=== PATIENT | female | born 1995 | race Caucasian/White ===

== ENCOUNTER 2017-02-13 20:08 | Emergency (ER) | payer BC ==
[2017-02-13] MEDS ORDERED: predniSONE TAB* 10 MG PO ONE (22:25)
[2017-02-13 22:26] VITALS: BP 138/64
--- NOTE | 2017-02-13 22:31 | UC ---
Skin Complaint HPI - HPI Summary HPI Summary: 21 y/o female with no PMH no medications presents for itchy rash/ bite over her forearm b/l, R foot, and posterior neck. patient states woke up with ones on her forearm last night, have increased in redness, itchy, and tenderness since that time. No fever, chills, + pain in R forearm with redness extending around bites. no joint tenderness, pain - History of Current Complaint Hx Obtained From: Patient Hx Last Menstrual Period: 2 months ago, one 3 month birtch control Onset/Duration: Sudden Onset, Lasting Days Skin Exposure Onset/Duration: Hours Ago Onset Severity: Moderate Current Severity: Moderate <Sailaja Wilson - Last Filed: 02/26/17 20:08> <Romana Jeffries - Last Filed: 02/27/17 20:39> - History of Current Complaint Chief Complaint: [facility] Time Seen by Provider: 02/13/17 21:59 Stated Complaint: SKIN - Allergy/Home Medications Allergies/Adverse Reactions: Allergies Allergy/AdvReac Type Severity Reaction Status Date / Time Sulfa Antibiotics Allergy Unknown Verified 02/13/17 20:43 Reaction Details Sulfamethoxazole Allergy Unknown Verified 02/13/17 20:43 w/Trimethoprim Reaction [From Bactrim] Details Home Medications: Home Medications Oral Contraceptive 1 tab PO DAILY 02/13/17 [History] Review of Systems Skin: Rash Musculoskeletal: Myalgia Is Patient Immunocompromised?: No All Other Systems Reviewed And Are Negative: Yes <Sailaja Wilson - Last Filed: 02/26/17 20:08> PMH/Surg Hx/FS Hx/Imm Hx Previously Healthy: Yes - Surgical History Surgical History: None - Social History Alcohol Use: Weekly Substance Use Type: None Smoking Status (MU): Never Smoked Tobacco - Immunization History Most Recent Influenza Vaccination: no <Sailaja Wilson - Last Filed: 02/26/17 20:08> Physical Exam Triage Information Reviewed: Yes Appearance: Well-Appearing, No Pain Distress, Well-Nourished Vital Signs: Initial Vital Signs Temp 98 F 02/13/17 20:37 Pulse 52 02/13/17 20:37 Resp 15 02/13/17 20:37 BP 126/62 02/13/17 20:37 Pulse Ox 100 02/13/17 20:37 Eyes: Positive: Conjunctiva Clear Neck: Positive: Supple, Nontender, No Lymphadenopathy, Other: - two healed over indurated areas approximately 5mm over posterior neck no erythema. redness, non -tender Musculoskeletal: Positive: Strength Intact Neurological Exam: Normal Psychological Exam: Normal Skin: Positive: rashes - multiple areas of raised, puritic erythema over lower legs, feet, forearms, and back of neck. largest on R forearm with mild induration <Sailaja Wilson - Last Filed: 02/26/17 20:08> Vital Signs: Initial Vital Signs Temp 98 F 02/13/17 20:37 Pulse 52 02/13/17 20:37 Resp 15 02/13/17 20:37 BP 126/62 02/13/17 20:37 Pulse Ox 100 02/13/17 20:37 <Romana Jeffries - Last Filed: 02/27/17 20:39> Course/Dx - Course Course Of Treatment: patient seen with Dr. Jeffries, felt that likely flea bites , recently was in tanning bed, educated on washing clothing, hydrocortisone for itching, information given. - Differential Diagnoses - Skin Complaint Differential Diagnoses: Allergic Reaction, Anaphylaxis, Drug Rash, Frostbite, Varicella Zoster - Diagnoses Provider Diagnoses: insect bites <Sailaja Wilson - Last Filed: 02/26/17 20:08> Discharge <Sailaja Wilson - Last Filed: 02/26/17 20:08> <Romana Jeffries - Last Filed: 02/27/17 20:39> - Discharge Plan Condition: Good Disposition: HOME Prescriptions: Hydrocortisone 1% CREAM* [Hytone Cream 1%*] 1 applic TOPICAL QID #1 tube diPHENhydraMINE PO* [Benadryl PO 25 MG TAB*] 25 mg PO Q6H PRN #60 tab PRN Reason: itching predniSONE TAB* [Deltasone TAB*] 40 mg PO DAILY #5 tab Patient Education Materials: Insect Bite or Sting (ED) Forms: *School Release Referrals: Non Staff,Doctor [Primary Care Provider] - Additional Instructions: - Motrin as needed for suki, swelling - Prednisone given at urgent care - hydrocoritsone over affected area 3-4 times daily - Benadryl as needed for itching, rash - Wash all bed sheet in hot water - Avoid tanning bed Attestation Statement User Type: Provider - I was available for consult. This patient was seen by the MARILIA. The patient was not presented to, seen by, or examined by me. -Danika <Romana Jeffries - Last Filed: 02/27/17 20:39>
== END 2017-02-13 22:34 | disposition home or self-care (01) ==
LOC: UCCORT 20:08
DX: S80.862A Insect bite (nonvenomous), left lower leg, initial encounter (principal); S80.861A Insect bite (nonvenomous), right lower leg, initial encounter; S90.862A Insect bite (nonvenomous), left foot, initial encounter; S90.861A Insect bite (nonvenomous), right foot, initial encounter; S50.862A Insect bite (nonvenomous) of left forearm, initial encounter; S50.861A Insect bite (nonvenomous) of right forearm, initial encounter; S10.86XA Insect bite of other specified part of neck, initial encounter; W57.XXXA Bitten or stung by nonvenomous insect and other nonvenomous arthropods, initial encounter; Y93.9 Activity, unspecified; Y92.9 Unspecified place or not applicable; M79.1 Myalgia; Z79.3 Long term (current) use of hormonal contraceptives; Z88.2 Allergy status to sulfonamides
CPT/HCPCS: 99202; G0463; J7512